=== PATIENT | female | born 1985 | race Caucasian/White ===

== ENCOUNTER 2016-11-16 15:11 | Emergency (ER) | payer BC, MEDICAID ==
[2016-11-16 15:40] VITALS: BP 130/81
--- NOTE | 2016-11-16 16:26 | ERNOTE ---
Medical Problem HPI - Narrative Date of Service: 11/16/16 - General Chief Complaint: Flu Symptoms Time Seen by Provider: 11/16/16 16:13 Source: patient Exam Limitations: no limitations - Immun/Allergies/Home Medications Immunizations: IMMUNIZATION HX Immunizations Up to Date Yes History of Influenza Vaccine Yes Hx Pneumococcal Vaccination No Allergies/Adverse Reactions: Allergies No Known Allergies Allergy (Verified 11/16/16 15:39) Home Medications: HOME MEDICATIONS NK [No Home Medication] 11/16/16 [Last Taken Unknown] - History of Present History Narrative: Pt. comes in with c/o Cough, sinus congestion, malaise, eye pain, ear congestion , sore throat and severe throat pain with cough. Pt. denies any alleviating factors despite taking robitussin and silvina selter. Review of Systems - Review of Systems Constitutional: Present: fever, chills, weakness, fatigue, malaise EYE: Present: eye pain. Absent: eye discharge, blurred vision, double vision, vision changes ENT: Present: nose congestion, nasal drainage, sore throat, other - ear congestion Respiratory: Present: shortness of breath - with coughing spells, cough. Absent : wheezing Cardiology: Present: chest pain - with coughing spells. Absent: palpitations, edema Gastrointestinal/Abdominal: Present: no symptoms reported. Absent: nausea, vomiting, diarrhea Genitourinary: Present: no symptoms reported Musculoskeletal: Present: muscle pain - generalized, joint pain - generalized. Absent: back pain, neck pain Skin: Present: no symptoms reported. Absent: rash, change in color Neurological: Present: headache. Absent: dizziness/light-headedness, weakness, numbness All Other Systems: All systems neg except as marked - Patient's Past Medical History Patient History - Medical: No pertinent hx Patient History - Cancer: No Hx of Cancer Patient History - Surgical Procedures: Cholecystectomy, T & A, Other - Social History Living Situations: home Smoking Status: Current every day smoker Alcohol Use: none Drug Use: none Physical Exam - Physical Exam General Appearance: Present: wd/wn, alert, mild distress Eye Exam: Normal inspection: bilateral, PERRL: bilateral, EOMI: bilateral Ears, Nose, Throat: Present: nasal congestion, sinus pain/drainage, pharyngeal erythema, tonsillar exudate - clear. Absent: pharyngeal swelling, dry mucous membranes Neck: Present: lymphadenopathy (R) - submandibular and cervicle, lymphadenopathy (L) - submandibular and cervicle, tender lateral Respiratory: Present: no respiratory distress, normal breath sounds, no accessory muscle use, chest nontender, lungs clear Cardiovascular/Chest: Present: regular rate, rhythm, no murmur, normal peripheral pulses Gastrointestinal/Abdominal: Present: normal bowel sounds, nontender, nondistended, soft, no organomegaly Back Exam: Present: normal inspection, normal range of motion, no CVA tenderness , no vertebral tenderness Extremity Exam: Present: normal inspection, non-tender, no edema, normal range of motion Neurological Exam: Present: alert, oriented, normal mood/affect, no motor/ sensory deficits, quality project manager II-XII nml as tested, normal cerebellar test Skin Exam: Present: warm/dry, pallor ED Progress - Results and Orders Patient's Lab Results:: I have reviewed the patient's lab results. - Vital Signs Patient's Vital Signs:: I have reviewed the patient's vital signs. Vital Signs: Vital Signs 11/16/16 15:36 Temperature 37.1 C Pulse Rate 91 Respiratory 18 Rate Blood Pressure 130/81 O2 Sat by Pulse 98 Oximetry - Progress/Reassessment Chief Complaint: Flu Symptoms Progress:: Unchanged Departure - Departure Clinical Impression: Influenza B Disposition: Home self-care Condition: Good Instructions: Influenza, Adult, [id number] Additional Instructions: Take Ibuprofen 800mg every 8 hours for body aches and follow up with primary provider if not improved in 3-5 days.
== END 2016-11-16 17:08 | disposition home or self-care (01) ==
LOC: ER 15:11
DX: J10.1 Influenza due to other identified influenza virus with other respiratory manifestations (principal); F17.210 Nicotine dependence, cigarettes, uncomplicated

== ENCOUNTER 2016-12-20 08:43 | Emergency (ER) | payer MEDICAID ==
[2016-12-20] MEDS ORDERED: MAGNESIUM CITRATE 300 ML BTL PO ONE (10:13)
[2016-12-20] MEDS ORDERED: diphenhydrAMINE HCL 50 MG/ML VIAL IV ONE (10:13)
[2016-12-20] MEDS ORDERED: METOCLOPRAMIDE HCL 5 MG/ML VIAL IV ONE (10:13)
[2016-12-20 10:18] LABS: Urine Bilirubin Negative (NEGATIVE); Urine Blood Negative /ul (NEGATIVE); Urine Ketone Negative (NEGATIVE); Urine Nitrite Negative (NEGATIVE); Urine Protein Negative (NEGATIVE); Urine Urobilinogen Normal (NORMAL); Urine pH 6.5 pH (5.0-7.0)
[2016-12-20] MEDS ORDERED: MAGNESIUM CITRATE 300 ML BTL ONE (10:19)
[2016-12-20] MEDS ORDERED: METOCLOPRAMIDE HCL 5 MG/ML VIAL ONE (10:19)
[2016-12-20] MEDS ORDERED: diphenhydrAMINE HCL 50 MG/ML VIAL ONE (10:19)
[2016-12-20 10:23] LABS: Hematocrit 42.9 % (37.0-47.0); Hemoglobin 14.6 gm/dL (12.5-16.0); Mean Cell Volume 92.9 fl (78-100); Mean Corpuscular Hemoglobin 31.6 pg (27-31); Mean Platelet Volume 10.4 fl (6.0-9.5); Neutrophil # 7.7 K/mm3 (1.3-6.0); Neutrophil % 64.9 % (42-75.0); Platelet Count 264 K/mm3 (150-450); Red Blood Count 4.62 M/mm3 (4.2-5.4); Red Cell Distribution Width 13.1 % (11.5-14.0); White Blood Count 11.9 K/mm3 (4.0-10.5)
[2016-12-20 10:27] LABS: Urine Appearance Clear; Urine Bacteria TRACE; Urine Color Yellow; Urine RBC None Seen /hpf (0-5); Urine WBC TRACE /hpf (0-5)
[2016-12-20 10:33] LABS: Albumin * 3.6 gm/dl (3.4-5.0); Anion Gap 16.9 mmol/L (6.8-13.8); BUN/Creatinine Ratio 10.3 (9.0-21.6); Bilirubin, Total 0.4 mg/dL (0.0-1.1); Ca. Corrected For Albumin 9.1 mg/dL (8.4-10.2); Calcium * 9.1 mg/dL (7.9-10.9); Carbon Dioxide 23.7 mmol/L (24-32.6); Potassium 3.6 mmol/L (3.4-4.6); Total Protein 7.5 gm/dL (6.2-8.2)
[2016-12-20 11:10] VITALS: BP 118/64
--- NOTE | 2016-12-20 11:48 | ERNOTE ---
Abdominal HPI - Narrative Date of Service: 12/20/16 - General Chief Complaint: Abdominal Pain Time Seen by Provider: 12/20/16 09:50 Source: patient Exam Limitations: no limitations - Immun/Allergies/Home Medications Immunizatons: IMMUNIZATION HX Immunizations Up to Date Yes History of Influenza Vaccine Yes Hx Pneumococcal Vaccination No Allergies/Adverse Reactions: Allergies No Known Allergies Allergy (Verified 12/20/16 09:04) Home Medications: HOME MEDICATIONS Vit No.78/Iron/FA [Prenatabs FA Tablet] 1 each PO DAILY 12/20/16 [Last Taken Unknown] - History of Present Illness Narrative: , probably five or 6 weeks. OB appt later this month. For about a week , nausea and occasional vomiting. RLQ tearing abdominal pain started yesterday. Constipated. Timing: getting worse Quality: cramping, stabbing Activities at Onset: none Modifying Factors - (Improves): Present: other - nothing Modifying Factors - (Worsens): Present: eating Associated Symptoms: Present: denies symptoms Prior Abdominal Problems: Present: none Review of Systems - Review of Systems Constitutional: Present: no symptoms reported EYE: Present: no symptoms reported ENT: Present: no symptoms reported Respiratory: Present: no symptoms reported Cardiology: Present: no symptoms reported Gastrointestinal/Abdominal: Present: See HPI Genitourinary: Present: no symptoms reported Musculoskeletal: Present: no symptoms reported Skin: Present: no symptoms reported Neurological: Present: no symptoms reported Endocrine: Present: no symptoms reported Hematologic/Lymphatic: Present: no symptoms reported Psych: Present: no symptoms reported All Other Systems: All systems neg except as marked - Patient's Past Medical History Patient History - Medical: No pertinent hx Patient History - Cardiac/Respiratory: No pertinent hx Patient History - Cancer: No Hx of Cancer Patient History - Surgical Procedures: Cholecystectomy, T & A, Other Patient History - Other: None - Social History Living Situations: home Abuse History: No History of abuse Psych History: No pertinent hx Smoking Status: Current every day smoker Have you smoked in the past 12 months: Yes Alcohol Use: none Drug Use: none - Immunizations Immunizations Up to Date: Yes Hx Pneumococcal Vaccination: No History of Influenza Vaccine: Yes Physical Exam - Physical Exam General Appearance: Present: wd/wn, alert, no apparent distress Eye Exam: Normal inspection: bilateral, PERRL: bilateral, EOMI: bilateral Ears, Nose, Throat: Present: normal ENT inspection, hearing grossly normal Neck: Present: normal inspection, nontender Respiratory: Present: no respiratory distress, normal breath sounds Cardiovascular/Chest: Present: regular rate, rhythm, no murmur Gastrointestinal/Abdominal: Present: normal bowel sounds, nondistended, soft, other - uterus, tender rlq Back Exam: Present: normal inspection, normal range of motion, no CVA tenderness , no vertebral tenderness Extremity Exam: Present: normal inspection, no edema Neurological Exam: Present: alert, oriented, normal mood/affect Skin Exam: Present: normal color, warm/dry ED Progress - Results and Orders Patient's Lab Results:: I have reviewed the patient's lab results. - Vital Signs Patient's Vital Signs:: I have reviewed the patient's vital signs. Vital Signs: Vital Signs 12/20/16 12/20/16 09:00 11:09 Temperature 35.5 C L 35.7 C L Pulse Rate 83 74 Respiratory 14 14 Rate Blood Pressure 117/78 118/64 O2 Sat by Pulse 98 98 Oximetry - CT/Ultrasound CT/Ultrasound Narrative: ultrasound shows 6 week intrauterine with heart beat. - Progress/Reassessment Chief Complaint: Abdominal Pain Progress:: Improved Departure - Departure Clinical Impression: First trimester , Vomiting affecting Constipation Qualifiers: Constipation type: slow transit constipation Qualified Code(s): K59.01 - Slow transit constipation Disposition: Home self-care Condition: Good Instructions: First Trimester of , [id number], Morning Sickness, [id number], Constipation, Adult, [id number]-[id number] Additional Instructions: One cap of Miralax plus 2 tblsp metamucil powder in 12 oz water or soda twice daily See your OB doctor this week. Get some candied adrian at [employer] [facility], use for nausea.
== END 2016-12-20 12:14 | disposition home or self-care (01) ==
LOC: ER 08:43
DX: K59.01 Slow transit constipation (principal); O21.9 Vomiting of pregnancy, unspecified; Z3A.01 Less than 8 weeks gestation of pregnancy; F17.210 Nicotine dependence, cigarettes, uncomplicated

== ENCOUNTER 2017-08-02 00:03 | Inpatient (IN) | payer OTHER ==
[2017-08-02] MEDS ORDERED: RINGER'S SOLUTION,LACTATED 1,000 ML IV ONE (00:52)
[2017-08-02] MEDS ORDERED: ONDANSETRON HCL/PF 2 MG/ML VIAL IV PRN ×2 (00:52→03:26)
[2017-08-02] MEDS ORDERED: LIDOCAINE HCL 50 ML VIAL PERI PRN (00:52)
[2017-08-02] MEDS ORDERED: MISOPROSTOL 100 MCG TABLET VG PRN (00:52)
[2017-08-02] MEDS ORDERED: OXYTOCIN/DEXTROSE 5%-WATER 30 UNITS/500 ML BAG IV ONE ×2 (00:52→14:01)
[2017-08-02] MEDS ORDERED: PENICILLIN G POTASSIUM 5 MILLIONUNT in DEXTROSE 5 % IN WATER 100 ML IV ONE ×2 (01:00)
[2017-08-02 02:17] LABS: Cocaine Ur Negative (NEGATIVE); Urine Barbiturate Negative (NEGATIVE); Urine Benzodiazepines Negative (NEGATIVE); Urine Opiates Negative (NEGATIVE); Urine PCP Negative (NEGATIVE); Urine THC Negative (NEGATIVE)
[2017-08-02] MEDS ORDERED: NALOXONE HCL 1 MG/1 ML SYRG IV PRN (03:26)
[2017-08-02] MEDS ORDERED: BUPIVACAINE HCL/0.9 % NACL/PF 250 ML EP PRN (03:26)
[2017-08-02] MEDS ORDERED: fentaNYL CITRATE/PF 50 MCG/ML AMPUL IT SCH (03:30)
--- NOTE | 2017-08-02 04:04 | OR ---
Anesthesia Pre Procedure Eval Date of Service: 08/02/17 Pre Procedure Evaluation: Last Vital Signs Temp 35.7 C L 12/20/16 11:09 Pulse Resp BP 118/64 12/20/16 11:09 Pulse Ox Anesthesia Pre Procedure Evaluation Heart Rate: 82 Blood Pressure: 124/77 Temperature: 36.4C Respiratory Rate: 14 SaO2: 94 DATE: 08/02/2017 TIME: 4 AM INDICATIONS: Active labor, labor pain PAST MEDICAL HISTORY: Multipara patient, being induced requesting labor analgesia History of GERD: No EXAM: Heart regular; lungs clear ASSESSMENT OF MEDICAL STATUS: Appropriate candidate for labor analgesia PLANNED PROCEDURE: Combination spinal epidural for labor analgesia Home Medications: HOME MEDICATIONS Vit No.78/Iron/FA [Prenatabs FA Tablet] 1 each PO DAILY 12/20/16 [Last Taken 07/31/17] Doxylamine Succinate [Unisom] 25 mg PO HS 06/14/17 [Last Taken Unknown] Polyethylene Glycol 3350 [Miralax] 17 gm PO DAILY 06/14/17 [Last Taken Unknown] Tums 2 tab PO PRN PRN 07/30/17 [Last Taken 07/30/17]
--- NOTE | 2017-08-02 04:29 | OR ---
Anesthesia Procedure Note - Anesthesia Procedure Note Date of Service: 08/02/17 Narrative: Vital Signs - Last Taken Temp 35.7 C L 12/20/16 11:09 Pulse Resp BP 118/64 12/20/16 11:09 Pulse Ox 08/02/17 04:27 ANESTHESIA PROCEDURE NOTE Date of Procedure: 08/02/2017 Time of procedure: 0400. Performed by: JOSEPH Simpson CRNA, MSN Retail Services Professional: Marine Simpson RN. Preprocedure diagnosis: Active labor, and pain. Post procedure diagnosis: Same. Procedure:Epidural for labor analgesia L3 4. Indications: Labor pain. Findings: See below. Details of the procedure: The patient was placed on the side of the bed in sitting positionand prepped with DuraPrep then draped in a sterile fashion. Lidocaine 1% was infiltrated to the skin and subcutaneous tissues at the level of the L3 4 interspace. An 18-gauge Touhy needle was used to approach the epidural space with loss of resistance technique. Once loss of resistance was achieved a 24-gauge Pencan needle was passed through the epidural needle and CSF was contacted. After CSF returned fentanyl 20 mcg of fentanyl was injected in the spinal needle was removed the epidural catheter was then threaded approximately 4 cm in the epidural needle was removed. The catheter was taped in place and after careful aspiration 3 mL of 1.5% lidocaine with 1-200,000 epinephrine was injected without change in maternal heart rate or sensorium. . EBL: Minimal. Fluids: N/A. Specimen: N/A. Post procedure condition: The patient tolerated the procedure well with good relief. No complications were noted. Thank you for this consultation. Gilberto Bolivar CRNA, ARNP, MSN
[2017-08-02] MEDS ORDERED: PENICILLIN G POTASSIUM 2.5 MILLIONUNT in DEXTROSE 5 % IN WATER 100 ML IV SCH ×2 (05:00)
[2017-08-02] MEDS: DEXTROSE 5%-LACTATED RINGERS 1,000 ML IV PRN ×2 (06:28→10:10)
--- NOTE | 2017-08-02 08:18 | PN ---
Progess Note - Interim Narrative: 08/02/17 08:14 Patient comfortable with epidural Vital signs stable. Pitocin at 6 mu/min. FHT: reassuring Contractions q 2-3 min Cervix: 3-4/60/-2 AROM-clear Impression: Intrauterine at 39 weeks elective induction of labor Plan: Continue present plan
[2017-08-02] MEDS ORDERED: BENZOCAINE/MENTHOL 81 SPRAY CAN TP PRN (14:01)
[2017-08-02] MEDS ORDERED: oxyCODONE HCL/ACETAMINOPHEN 1 TAB TABLET PO PRN (14:01)
[2017-08-02] MEDS ORDERED: GLYCERIN/WITCH HAZEL LEAF 40 APPL BOX TP PRN (14:01)
[2017-08-02] MEDS ORDERED: BISACODYL 10 MG SUPP.RECT RC PRN (14:01)
[2017-08-02] MEDS ORDERED: SENNOSIDES 8.6 MG TABLET PO PRN (14:01)
[2017-08-02] MEDS ORDERED: HYDROCORTISONE 30 APPL TUBE TP PRN (14:01)
--- NOTE | 2017-08-02 14:03 | OR ---
Operative Report - Dictated Report Narrative: Jas vaginal delivery of viable female at 1345 on 08/02/2017 with Apgars 8 and 9, weighing 2733 g. Nuchal cord 1 tight - delivered through. Cord clamping delayed approximately 1 minute Placenta delivered complete, intact, with three vessel cord Estimated blood loss: less than 50 ml Lacerations: None History for MU Definition: * The number of deliveries resulting in a live the patient experienced prior to current hospitalization * The previous delivery of live twins or any live multiple gestation is considered one live event. *If primagravida or nulliparous is documented select zero for the number of previous live births. Live Events: 1
[2017-08-02] MEDS: IBUPROFEN 800 MG TABLET PO PRN (15:35)
[2017-08-02] MEDS: oxyCODONE HCL/ACETAMINOPHEN 1 TAB TABLET PO PRN ×2 (16:03→20:31)
[2017-08-02] MEDS: DOCUSATE SODIUM 100 MG CAPSULE PO SCH (20:31)
[2017-08-03] MEDS: IBUPROFEN 800 MG TABLET PO PRN ×4 (00:56→20:53)
[2017-08-03] MEDS: oxyCODONE HCL/ACETAMINOPHEN 1 TAB TABLET PO PRN ×6 (00:57→20:53)
[2017-08-03] MEDS: DOCUSATE SODIUM 100 MG CAPSULE PO SCH ×3 (07:13→20:53)
--- NOTE | 2017-08-03 09:52 | PN ---
Subjective - Date and Time Seen Date: 08/03/17 Time: 09:52 Objective - Vitals Vitals: Last Vital Signs Temp 36.0 C L 08/03/17 07:30 Pulse 67 08/03/17 07:30 Resp 16 08/03/17 07:30 BP 132/81 08/03/17 07:30 Pulse Ox 98 08/03/17 07:30 Patient denies complaints. Lochia wnl Abdomen - soft, nontender Uterus - firm, at umbilicus - 1 No calf tenderness Impression: day #1 - s/p spontaneous vaginal delivery. Plan: Continue routine care Cauti Physician Documentation - Urinary Catheter Management Urethral (Baxter) Date of Insertion: 08/02/17 Time of Insertion: 05:00
[2017-08-04] MEDS: oxyCODONE HCL/ACETAMINOPHEN 1 TAB TABLET PO PRN ×3 (04:05→10:46)
[2017-08-04] MEDS: IBUPROFEN 800 MG TABLET PO PRN ×2 (04:06→10:46)
[2017-08-04] MEDS: DOCUSATE SODIUM 100 MG CAPSULE PO SCH ×2 (07:27→09:25)
[2017-08-04 08:26] VITALS: BP 133/78
--- NOTE | 2017-08-04 10:18 | PN ---
Subjective - Date and Time Seen Date: 08/04/17 Time: 10:17 Objective - Vitals Vitals: Last Vital Signs Temp 35.8 C L 08/04/17 07:40 Pulse 61 08/04/17 07:40 Resp 16 08/04/17 07:40 BP 133/78 08/04/17 07:40 Pulse Ox 97 08/04/17 07:40 Patient denies complaints. Lochia wnl Abdomen - soft, nontender Uterus - firm, at umbilicus - 2 No calf tenderness Impression: day #2 - s/p spontaneous vaginal delivery. Plan: Routine discharge instructions Cauti Physician Documentation - Urinary Catheter Management Urethral (Baxter) Date of Insertion: 08/02/17 Time of Insertion: 05:00
== END 2017-08-04 10:55 | disposition home or self-care (01) | DRG 775 ==
LOC: OB 00:03 → MS 08-03 12:12
PROVIDERS: ADMIT Obstetrics & Gynecology; ATTEND Obstetrics & Gynecology
PROC: 10E0XZZ Delivery of Products of Conception, External Approach (ICD-10-PCS; principal; 2017-08-02)
PROC: 10907ZC Drainage of Amniotic Fluid, Therapeutic from Products of Conception, Via Natural or Artificial Opening (ICD-10-PCS; 2017-08-02)
PROC: 3E033VJ Introduction of Other Hormone into Peripheral Vein, Percutaneous Approach (ICD-10-PCS; 2017-08-02)
PROC: 4A1HXCZ Monitoring of Products of Conception, Cardiac Rate, External Approach (ICD-10-PCS; 2017-08-02)
PROC: 00HU33Z Insertion of Infusion Device into Spinal Canal, Percutaneous Approach (ICD-10-PCS; 2017-08-02)
DX: O69.1XX0 Labor and delivery complicated by cord around neck, with compression, not applicable or unspecified (principal); O99.324 Drug use complicating childbirth; F12.980 Cannabis use, unspecified with anxiety disorder; O99.334 Smoking (tobacco) complicating childbirth; Z3A.39 39 weeks gestation of pregnancy; Z37.0 Single live birth

== ENCOUNTER 2017-08-25 07:00 | Day surgery (SDC) | payer OTHER ==
[~2017-08-25 07:00] MED LIST: RINGER'S SOLUTION,LACTATED 1,000 ML IV PRN
[2017-08-25] MEDS ORDERED: RINGER'S SOLUTION,LACTATED 1,000 ML IV ONE ×2 (07:34→09:05)
[2017-08-25] MEDS ORDERED: LIDOCAINE HCL/EPINEPHRINE 50 ML VIAL IJ ONE (08:25)
--- NOTE | 2017-08-25 09:12 | OR ---
Operative Report - Dictated Report Narrative: DATE OF PROCEDURE: 08/25/2017 INDICATION: 32 year old female desires permanent sterilization by removal of both fallopian tubes PREOPERATIVE DIAGNOSIS: Multiparity, desires permanent sterilization POSTOPERATIVE DIAGNOSIS: Multiparity, desires permanent sterilization OPERATION: Laparoscopic bilateral salpingectomy SURGEON: Munir Cota D.O. BUSINESS MANAGEMENT ASSOCIATE: None ANESTHESIA: General ESTIMATED BLOOD LOSS: Minimal FLUID REPLACEMENT: 500 mL URINE OUTPUT: Not measured FINDINGS: Normal uterus, tubes, and ovaries. SPECIMEN(S): Fallopian tubes DRAINS: none TECHNIQUE: The patient was taken to the operating room and placed in dorsal lithotomy position after adequate general anesthesia was obtained. The anterior lip of the cervix was grasped with a long Allis clamp and a uterine manipulator was inserted into the cervical canal and attached to the Allis clamps as a means to manipulate the uterus. Bladder was drained prior to patient entering the OR. Gloves were changed and attention was turned to the abdomen where the umbilicus and suprapubic region were injected with a 1% lidocaine epinephrine was solution. A scalpel was used to score the skin and a 12 mm non-bladed trocar was inserted via direct technique under direct visualization. Pneumoperitoneum was created with CO2 gas. A 5 mm non-bladed trocar was inserted suprapubically in a similar fashion. Through these 2 ports the surgery was carried out with findings as noted above. The right fallopian tube was identified and followed out to the fimbriated end. The fallopian tube was coagulated with the Kleppinger's approximately 2 cm from the cornual region and along the mesosalpinx. The tube was then excised with laparoscopic scissors and removed through the 12 mm port. The exact same was done on the patient's left side. The CO2 gas was removed from the abdominal cavity. Trochars were removed under direct visualization. The fascia of the 12 mm port was closed with a single 0 Vicryl suture. The skin of both incisions was closed with 4-0 Monocryl and Dermabond. Instruments were removed from the cervix and vagina. Sponge, lap, instrument, and needle count were correct x 2. DISPOSITION: The patient was awakened and transferred to post anesthesia care unit in good condition.
[2017-08-25] MEDS ORDERED: MORPHINE SULFATE 2 MG/ML DISP.SYRIN IV PRN (10:36)
[2017-08-25] MEDS ORDERED: oxyCODONE HCL/ACETAMINOPHEN 1 TAB TABLET PO PRN (10:38)
[2017-08-25] MEDS ORDERED: IBUPROFEN 800 MG TABLET PO PRN (10:39)
[2017-08-25 11:26] VITALS: BP 131/80
== END 2017-08-25 07:01 | disposition home or self-care (01) ==
LOC: AMB 07:00
PROVIDERS: ATTEND Obstetrics & Gynecology
PROC: 0UB74ZZ Excision of Bilateral Fallopian Tubes, Percutaneous Endoscopic Approach (ICD-10-PCS; principal; 2017-08-25 08:00)
DX: Z30.2 Encounter for sterilization (principal); N83.8 Other noninflammatory disorders of ovary, fallopian tube and broad ligament; N92.5 Other specified irregular menstruation; D64.9 Anemia, unspecified; F41.1 Generalized anxiety disorder; F17.200 Nicotine dependence, unspecified, uncomplicated; F12.10 Cannabis abuse, uncomplicated; Z68.30 Body mass index [BMI] 30.0-30.9, adult